=== PATIENT | female | born 1955 ===

== ENCOUNTER 2021-03-06 10:51 | Outpatient (CLI) | payer OTHER ==
[~2021-03-06 10:51] MED LIST: METFORMIN HCL500 M3 PO; SYNTHROID100 MCG PO
== END 2021-03-06 11:02 | disposition home or self-care (01) ==
LOC: SONOGRAMA 10:51
PROVIDERS: ATTEND Specialist
DX: D17.1 Benign lipomatous neoplasm of skin and subcutaneous tissue of trunk (principal)

== ENCOUNTER 2021-03-07 05:42 | Day surgery (SDC) | payer OTHER | END 2021-03-07 12:30 | disposition home or self-care (01) | LOC: CIR.AMB 05:42 | PROVIDERS: ATTEND Specialist | DX: D17.1 Benign lipomatous neoplasm of skin and subcutaneous tissue of trunk (principal); Z20.822 Contact with and (suspected) exposure to COVID-19 ==